=== PATIENT | female | born 1965 | race Caucasian/White ===

== ENCOUNTER → 2017-04-13 | Outpatient (CLI) | payer BC ==
[2017-04-13 13:15] LABS: BASO % 0.6 %; BASO ABS # 0.03 K/uL (0-0.2); EOS % 1.4 %; HEMATOCRIT 34.3 % (37-47); IG% 0.2 %; LYMPH % 33.5 %; LYMPH ABS # 1.68 K/uL (1.2-3.4); MEAN CELL VOLUME 66.2 fL (80-100); MEAN CORPUSCULAR HEMOGLOBIN 20.5 pg (25-34); MEAN CORPUSCULAR HGB CONC 30.9 g/dl (32-36); NEUT % 58.3 %; PLATELET COUNT 211 K/uL (130-400); RED BLOOD COUNT 5.18 M/uL (4.2-5.4); WHITE BLOOD COUNT 5.02 K/uL (4.8-10.8)
[2017-04-13 13:53] LABS: COMPLETE YES; MICROCYTOSIS PRESENT; POLYCHROMASIA 1+
[2017-04-13 14:09] LABS: ALT/SGPT 31 U/L (12-78); AST/SGOT 21 U/L (15-37); BLOOD UREA NITROGEN 13 mg/dl (7-18); BUN/CREATININE RATIO 21.2 (10-20); CALCIUM 9.1 mg/dl (8.5-10.1); CARBON DIOXIDE 28 mmol/L (21-32); CHLORIDE 109 mmol/L (98-107); CHOLESTEROL 146 mg/dl (0-200); GLUCOSE 81 mg/dl (70-99); POTASSIUM 3.8 mmol/L (3.5-5.1); SODIUM 144 mmol/L (136-145); TRIGLYCERIDES 98 mg/dl (0-150); VERY LOW DENSITY LIPOPROT CALC 20 mg/dl
[2017-04-13 14:18] LABS: ALKALINE PHOSPHATASE 218 U/L (45-117); CHOLESTEROL/HDL RATIO 2.8; FERRITIN 253.2 ng/ml (8.0-388.0); HDL CHOLESTEROL 53 mg/dl; LDL CHOLESTEROL CALCULATED 73 mg/dl; TOTAL IRON BINDING CAPACITY 271 mcg/dl (250-450)
== END | disposition home or self-care (01) ==
LOC: C.LABMFLN 08:36
PROVIDERS: ATTEND Family Medicine
DX: E78.5 Hyperlipidemia, unspecified (principal); E55.9 Vitamin D deficiency, unspecified; D56.3 Thalassemia minor; Z98.84 Bariatric surgery status; L65.9 Nonscarring hair loss, unspecified

== ENCOUNTER → 2017-07-27 | Outpatient (CLI) | payer BC ==
[2017-07-27 13:26] LABS: BASO % 0.6 %; BASO ABS # 0.03 K/uL (0-0.2); EOS % 1.7 %; HEMATOCRIT 34.7 % (37-47); IG% 0.2 %; LYMPH ABS # 1.85 K/uL (1.2-3.4); MEAN CELL VOLUME 66.2 fL (80-100); MEAN CORPUSCULAR HEMOGLOBIN 20.6 pg (25-34); MEAN CORPUSCULAR HGB CONC 31.1 g/dl (32-36); MONO % 5.1 %; NEUT % 58.4 %; PLATELET COUNT 210 K/uL (130-400); RED BLOOD COUNT 5.24 M/uL (4.2-5.4); WHITE BLOOD COUNT 5.44 K/uL (4.8-10.8)
[2017-07-27 14:07] LABS: COMPLETE YES; HYPOCHROMIA PRESENT; MICROCYTOSIS PRESENT; TARGET CELLS 1+
[2017-07-27 14:25] LABS: ALT/SGPT 34 U/L (12-78); AST/SGOT 17 U/L (15-37); BLOOD UREA NITROGEN 13 mg/dl (7-18); BUN/CREATININE RATIO 24.3 (10-20); CALCIUM 9.2 mg/dl (8.5-10.1); CARBON DIOXIDE 28 mmol/L (21-32); CHLORIDE 108 mmol/L (98-107); CREATININE 0.55 mg/dl (0.60-1.20); GLUCOSE 86 mg/dl (70-99); SODIUM 139 mmol/L (136-145)
[2017-07-27 14:37] LABS: ALKALINE PHOSPHATASE 201 U/L (45-117); TOTAL IRON BINDING CAPACITY 280 mcg/dl (250-450)
== END | disposition home or self-care (01) ==
LOC: C.LABMFLN 09:19
PROVIDERS: ATTEND Family Medicine
DX: E55.9 Vitamin D deficiency, unspecified (principal); D56.3 Thalassemia minor; Z98.84 Bariatric surgery status

== ENCOUNTER → 2018-01-19 | Outpatient (CLI) | payer BC ==
[2018-01-19 17:45] LABS: BASO % 0.5 %; BASO ABS # 0.03 K/uL (0-0.2); EOS % 1.9 %; EOS ABS # 0.11 K/uL (0-0.5); HEMATOCRIT 35.8 % (37-47); HEMOGLOBIN 11.2 g/dL (12.0-16.0); IG# 0.01 K/uL (0.00-0.02); LYMPH % 34.9 %; LYMPH ABS # 2.02 K/uL (1.2-3.4); MEAN CELL VOLUME 65.8 fL (80-100); MEAN CORPUSCULAR HEMOGLOBIN 20.6 pg (25-34); MEAN CORPUSCULAR HGB CONC 31.3 g/dl (32-36); MONO % 5.9 %; MONO ABS # 0.34 K/uL (0.11-0.59); NEUT % 56.6 %; NEUT ABS # 3.27 K/uL (1.4-6.5); PLATELET COUNT 295 K/uL (130-400); RED CELL DISTRIBUTION WIDTH CV 15.7 % (11.5-14.5); RED CELL DISTRIBUTION WIDTH SD 35.6 fL (36.4-46.3); WHITE BLOOD COUNT 5.78 K/uL (4.8-10.8)
[2018-01-19 17:57] LABS: ALBUMIN 3.6 gm/dl (3.4-5.0); ALT/SGPT 32 U/L (12-78); AST/SGOT 20 U/L (15-37); BLOOD UREA NITROGEN 10 mg/dl (7-18); CALCIUM 9.2 mg/dl (8.5-10.1); CARBON DIOXIDE 28 mmol/L (21-32); CHOLESTEROL 158 mg/dl (0-200); CREATININE 0.56 mg/dl (0.60-1.20); GLUCOSE 83 mg/dl (70-99); POTASSIUM 4.3 mmol/L (3.5-5.1); SODIUM 140 mmol/L (136-145)
[2018-01-19 18:03] LABS: ALKALINE PHOSPHATASE 157 U/L (45-117); LDL CHOLESTEROL CALCULATED 87 mg/dl; TOTAL PROTEIN 7.1 gm/dl (6.4-8.2); TRANSFERRIN 211 mg/dl (200-360)
== END | disposition home or self-care (01) ==
LOC: C.LABMFLN 11:15
PROVIDERS: ATTEND Family Medicine
DX: E53.8 Deficiency of other specified B group vitamins (principal); E78.5 Hyperlipidemia, unspecified; E55.9 Vitamin D deficiency, unspecified; D56.3 Thalassemia minor; Z98.84 Bariatric surgery status

== ENCOUNTER 2018-03-28 08:56 | Inpatient (IN) | payer BC ==
[2018-03-17 13:42] VITALS: BMI 42.0
--- NOTE | 2018-03-17 14:18 | PAT Medication Instructions ---
Service Date Mar 17, 2018. Current Home Medication List Acetaminophen (Tylenol), 1,000 MG PO Q8 PRN for Pain Calcium Carbonate-Cholecalcife (Caltrate 600+D), 1 TAB PO QAM Cholecalciferol (Vitamin D3), 1.5 TAB PO QAM Pediatric Multiple Vitamin W/ (Flintstones Chewable), 2 TAB PO QAM [vitamin b12 inj], 1 DOSE SQ MONTHLY Medication Instructions For Your Scheduled Surgery -Continue as directed: [vitamin b12 inj], 1 DOSE SQ MONTHLY - Hold the following medications the morning of surgery: Calcium Carbonate-Cholecalcife (Caltrate 600+D), 1 TAB PO QAM Cholecalciferol (Vitamin D3), 1.5 TAB PO QAM Pediatric Multiple Vitamin W/ (Flintstones Chewable), 2 TAB PO QAM - Take the following medications the morning of surgery with a sip of water: Acetaminophen (Tylenol), 1,000 MG PO Q8 PRN for Pain (if needed, can be taken up to four hours before surgery) - Take the following medications as scheduled the night before surgery: Acetaminophen (Tylenol), 1,000 MG PO Q8 PRN for Pain (if needed) If you have any questions please call us at [phone] or [phone] or [phone]
--- NOTE | 2018-03-17 15:03 | DIAGNOSTIC IMAGING REPORT ---
CHEST 2 VIEWS ROUTINE HISTORY: Preop. COMPARISON: None. FINDINGS: The lungs are clear. Cardiac silhouette is normal in size. No pleural effusions. No pneumothorax. IMPRESSION: No acute process. Electronically signed by: Lane Moraes M.D. 03/17/2018 3:01 PM Dictated Date/Time: 03/17/2018 2:58 PM
[2018-03-17 15:16] LABS: BASO % 0.4 %; BASO ABS # 0.02 K/uL (0-0.2); EOS % 1.8 %; HEMATOCRIT 33.3 % (37-47); HEMOGLOBIN 10.8 g/dL (12.0-16.0); IG# 0.01 K/uL (0.00-0.02); LYMPH % 35.3 %; LYMPH ABS # 1.96 K/uL (1.2-3.4); MEAN CELL VOLUME 64.3 fL (80-100); MEAN CORPUSCULAR HEMOGLOBIN 20.8 pg (25-34); MEAN CORPUSCULAR HGB CONC 32.4 g/dl (32-36); MONO % 5.2 %; MONO ABS # 0.29 K/uL (0.11-0.59); NEUT % 57.1 %; NEUT ABS # 3.18 K/uL (1.4-6.5); PLATELET COUNT 206 K/uL (130-400); RED CELL DISTRIBUTION WIDTH CV 16.1 % (11.5-14.5); RED CELL DISTRIBUTION WIDTH SD 36.6 fL (36.4-46.3); WHITE BLOOD COUNT 5.56 K/uL (4.8-10.8)
[2018-03-17 15:25] LABS: PTT PATIENT 25.9 SECONDS (21.0-31.0)
[2018-03-17 15:58] LABS: CALCIUM 9.2 mg/dl (8.5-10.1); CREATININE 0.53 mg/dl (0.60-1.20); POTASSIUM 3.8 mmol/L (3.5-5.1)
--- NOTE | 2018-03-24 17:05 | HISTORY & PHYSICAL EXAMINATION ---
DATE OF ADMISSION: 03/28/2018 CHIEF COMPLAINT: Bilateral knee pain and discomfort. HISTORY OF PRESENT ILLNESS: The patient is a 53-year-old female referred by my partner Dr. Hamilton for treatment of her knees. She has a long history of bilateral knee pain and discomfort, left side just a bit worse than the right. She has been through extensive conservative treatment over the years. The injections only helped her for about 2 weeks and that is about it. Pain has become more debilitating. She did have gastric bypass surgery with some weight loss but continues to be limited by her knee pain. She has pain with every step. She would like to proceed with left knee replacement. PAST MEDICAL HISTORY: Significant for 1. Obesity with BMI of 42, status post gastric reduction surgery in July 2017. 2. Thalassemia minor. 3. Back pain/sciatica. PAST SURGICAL HISTORY: Includes 1. Breast reduction. 2. Partial stomach reduction. 3. . ALLERGIES: None. CURRENT MEDICATIONS: 1. Tylenol. 2. Flintstones vitamins. 3. Calcium. 4. Vitamin D. SOCIAL HISTORY: A 53-year-old female. She is from [place]. She is single. Rare alcohol intake. She does not smoke. 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 FAMILY HISTORY: Significant for heart disease and diabetes. REVIEW OF SYSTEMS: Negative for diabetes, neurologic problem, vascular problem, bleeding disorders. No chest pain, no shortness of breath. No history of DVT or PE. She cannot take NSAIDs due to gastric bypass surgery. PHYSICAL EXAMINATION: GENERAL: Exam shows pleasant middle-aged female, looks to be in pretty good health. HEENT: Benign. NECK: Supple. No lymphadenopathy. LUNGS: Clear to auscultation. CARDIOVASCULAR: Heart has a regular rate and rhythm. GASTROINTESTINAL: Abdomen is soft, nontender, nondistended. EXTREMITIES: Grossly neurovascularly intact except as follows: Examination of both knees reveals the patient walks with a waddling gait. She has small knee effusions in both knees. She walks with a varus thrust bilaterally. She walks with a pretty stiff knee gait. Range of motion of both knees is pretty similar with about 15 degrees flexion contracture and about 90 degrees of flexion on both sides. Very stiff knees. IMAGING: X-rays of both knees reveal advanced bilateral knee DJD. She has complete loss of medial joint space and tibial femoral subluxation and cystic changes in both knees in all compartments. ASSESSMENT: A 53-year-old female with advanced bilateral knee pain and degenerative joint disease unresponsive to conservative treatment. She would like to proceed with left knee replacement. PLAN: We are going to proceed with left knee replacement. The risks and benefits of this procedure were explained to the patient and include but are not limited to DVT, PE, , infection, neurological injury, vascular injury, bleeding problem, pain, limited range of motion, stiffness, failure to relieve symptoms, incomplete relief of symptoms, need for further surgery in the future, fracture, leg length inequality, nerve palsy, and need for revision surgery. She is aware at her young age she may need this revised in the future. Due to her gastric bypass surgery, we cannot use aspirin. We will use Xarelto for DVT prophylaxis postoperatively. She should be able to be discharged home using [facility].
[2018-03-28] VITALS (8 sets, daily range): BP systolic 104–135; BP diastolic 68–81; PULSE 39–60; TEMP 36.4–36.8; O2SAT 95–100; Ht 152.4 cm; Wt 97.6 kg
[~2018-03-28] VITALS: Ht 152.4 cm; Wt 97.6 kg
[~2018-03-28 08:56] MED LIST: ACET-1256 PO; ACETAMINOPHEN 500 MG TAB PO SCH; BUPIVACAINE 0.5 % 5 MG/1 ML PF 10ML VIAL ONE; BUPIVACAINE LIPOSOME 266 MG, BUPIVACAINE/EPINEPHRINE INJ 50 ML, SODIUM CHLORIDE 0.9% PF... INFIL SCH; CALC-354 PO; CEFAZOLIN 2000MG IV PUSH 15 ML IV SCH; CHOL20007 PO; DEXAMETHASONE SOD INJ 4 MG/ML VIAL ONE; EpINEphrine INJ 1MG/ML AMP 1 MG/ML AMP ONE; FAMOTIDINE 20 MG TAB PO SCH; GABAPENTIN 900 MG PO SCH; LACTATED RINGER'S 1000ML IV SCH; METOCLOPRAMIDE HCL 10 MG TAB PO SCH; PEDICHW50 PO; SCOPOLAMINE 1.5 MG TDSY TD SCH; SODIUM CHLORIDE 0.9% INJ 10 ML VIAL ONE; TRANEXAMIC ACID INJ 1,000 MG x 1 Bag Intra-Op IV SCH; vitamin b12 inj SQ
[2018-03-28] MEDS ORDERED: FENTANYL CITRATE INJ 50 MCG/1 ML 2 ML VIAL ONE (09:23)
[2018-03-28] MEDS ORDERED: MIDAZOLAM HCL 1 MG/ML 2ML VIAL ONE ×2 (09:23→10:44)
--- NOTE | 2018-03-28 10:14 | History & Physical Bridge Note ---
H&P Re-Evaluation Bridge Note: I have examined the patient, reviewed the History & Physical and in the interval since the performance of the History & Physical I have noted the following changes of clinical significance: No changes noted
[2018-03-28] MEDS ORDERED: BACITRACIN 50000 UNIT VIAL ONE (10:23)
[2018-03-28] MEDS ORDERED: BUPIVACAINE LIPOSOME 1/3% 266 MG/20 ML VIAL ONE (10:23)
[2018-03-28] MEDS ORDERED: BUPIVACAINE 0.25% 30 ML VIAL ONE (10:23)
[2018-03-28] MEDS ORDERED: SODIUM CHLORIDE 0.9% PF 50 ML VIAL ONE (10:23)
[2018-03-28] MEDS ORDERED: PROPOFOL IV EMULSION 10 MG/ML 20 ML VIAL ONE ×2 (10:44→11:47)
[2018-03-28] MEDS ORDERED: ONDANSETRON INJ 2 MG/ML 2 ML VIAL IV PRN ×2 (10:45→12:30)
[2018-03-28] MEDS ORDERED: EpHEDrine SULFATE INJ 50 MG/ML AMP IV PRN (10:45)
[2018-03-28] MEDS ORDERED: FENTANYL CITRATE INJ 50 MCG/1 ML 2 ML VIAL IV PRN (10:45)
[2018-03-28] MEDS ORDERED: ATROPINE SULFATE 0.1 MG/ML 5ML SYR IV PRN (10:45)
--- NOTE | 2018-03-28 12:25 | [facility] Post Operative Brief Note ---
Immediate Operative Summary Operative Date March 28, 2018. Pre-Operative Diagnosis Left Knee Degenerative Joint Disease Post-Operative Diagnosis Left Knee Degenerative Joint Disease Procedure(s) Performed Left Total Knee Arthroplasty Surgeon Dr. Jasso Apparel Rental Clerk Surgeon(s) Isaac Corrales PA-C Estimated Blood Loss 50 ML Findings Consistent with Post-Op Diagnosis Fluids (cc crystalloids) 1300 cc Specimens A. Left Knee Bone and Tissue Drains None Anesthesia Type MAC Spinal Regional Complication(s) none Disposition Accompanied Pt To Recover: no Disposition: Recovery Room / PACU
[2018-03-28] MEDS ORDERED: MAGNESIUM HYDROXIDE SUSP 30 ML UDC PO PRN (12:30)
[2018-03-28] MEDS ORDERED: ZOLPIDEM TARTRATE 5 MG TAB PO PRN (12:30)
[2018-03-28] MEDS ORDERED: SILVER SULFADIAZINE 1% CR 50 GM JAR EXT PRN (12:30)
[2018-03-28] MEDS ORDERED: DiphenhydrAMINE HCL 50 MG/ML VIAL IV PRN (12:30)
[2018-03-28] MEDS ORDERED: MoRPHine SULFATE 2 MG/ML CARP IV PRN (12:30)
[2018-03-28] MEDS ORDERED: METOCLOPRAMIDE HCL INJ 5 MG/ML 2 ML VIAL IV PRN (12:30)
[2018-03-28] MEDS ORDERED: BISACODYL 10 MG SUPP PR PRN (12:30)
[2018-03-28] MEDS ORDERED: ALUMINUM/MAGNESIUM/SIMETH (MAALOX MAX) 30 ML UDC PO PRN (12:30)
--- NOTE | 2018-03-28 13:18 | DIAGNOSTIC IMAGING REPORT ---
L KNEE 1 OR 2 VIEWS ROUTINE CLINICAL HISTORY: AP/LATERAL IN PACU LEFT KNEE COMPARISON: None. DISCUSSION: Anatomic alignment posttotal left knee arthroplasty. Good contact between prosthetic and underlying bone. Expected soft tissue postoperative change. IMPRESSION: Anatomic alignment posttotal left knee arthroplasty. The above report was generated using voice recognition software. It may contain grammatical, syntax or spelling errors. Electronically signed by: Cordell Garzon M.D. 03/28/2018 1:17 PM Dictated Date/Time: 03/28/2018 1:13 PM
--- NOTE | 2018-03-28 13:37 | Anesthesiology Progress Note ---
Anesthesia Post Op Note Date & Time March 28, 2018 at 13:37 Vital Signs Pain Intensity: 0 Vital Signs Past 12 Hours Date Time Temp Pulse Resp B/P (MAP) Pulse Ox O2 Delivery O2 Flow Rate FiO2 03/28/18 13:12 54 18 03/28/18 13:12 54 18 100 03/28/18 13:11 106/63 03/28/18 13:07 48 15 03/28/18 13:07 49 15 95/73 100 03/28/18 13:06 36.6 100 Nasal Cannula 2 03/28/18 13:02 52 15 03/28/18 13:02 49 15 100 03/28/18 13:01 51 16 03/28/18 13:01 50 16 109/66 100 03/28/18 12:56 65 22 03/28/18 12:56 68 22 103/63 100 03/28/18 12:51 60 12 100 03/28/18 12:51 60 12 03/28/18 12:50 115/69 03/28/18 12:46 57 21 03/28/18 12:46 56 21 100 03/28/18 12:45 103/59 03/28/18 12:41 72 21 100 03/28/18 12:41 69 21 03/28/18 12:40 109/64 03/28/18 12:38 65 19 03/28/18 12:38 65 19 100 03/28/18 12:35 108/62 03/28/18 12:33 72 20 100 03/28/18 12:33 74 20 03/28/18 12:31 97/65 03/28/18 12:29 116/74 03/28/18 12:28 76 14 94 03/28/18 12:28 79 14 03/28/18 12:28 36.4 75 16 116/74 100 Nasal Cannula 2 03/28/18 09:30 36.6 56 18 135/81 96 Room Air Notes Mental Status: alert / awake / arousable, participated in evaluation Pt Amnestic to Procedure: Yes Nausea / Vomiting: adequately controlled Pain: adequately controlled Airway Patency, RR, SpO2: stable & adequate BP & HR: stable & adequate Hydration State: stable & adequate Neuraxial Anesthesia: was administered, sensory block is resolving Anesthetic Complications: no major complications apparent
--- NOTE | 2018-03-28 13:43 | OPERATIVE REPORT ---
DATE OF OPERATION: 03/28/2018 SURGEON: Jt Jasso MD AUTOMOTIVE PORTER: JOSHUA Ferraro PREOPERATIVE DIAGNOSIS: Left knee degenerative joint disease. POSTOPERATIVE DIAGNOSIS: Left knee degenerative joint disease. PROCEDURE PERFORMED: Left cemented posterior stabilized total knee arthroplasty. COMPLICATIONS: None. ESTIMATED BLOOD LOSS: 50 mL. FLUID REPLACEMENT: 1300 mL crystalloid fluid replacement. TOURNIQUET TIME: 57 minutes at 300 mmHg. ANESTHESIA: Spinal with adductor canal block. DRAINS: None. SPECIMENS: Left knee sent for pathology. OPERATIVE INDICATIONS: The patient is a 53-year-old female who has had a long history of bilateral knee pain and discomfort She has been through extensive conservative treatment. She became less successful over time. She has undergone a gastric bypass surgery and had a significant weight loss. Despite this, she continues to be limited by her knee pain. X-rays revealed advanced DJD. She elected to have left total knee arthroplasty. OPERATIVE FINDINGS: Operative findings revealed advanced left knee DJD with extensive grade 4 changes in the entire medial compartment and focal grade 4 changes in the lateral and patellofemoral compartments. She had a fixed varus deformity to her knee with a large knee joint effusion. Moderate to large soft tissue envelope. She had a very stiff knee with flexion contracture of 10 degrees and flexion to about 100 degrees. OPERATIVE IMPLANTS: Operative implants consisted of: 1. Biomet Vanguard size 60 left posterior stabilized femoral component. 2. A Biomet size 67 tibial tray. 3. A 12 mm posterior stabilized polyethylene insert. 4. A 28 x 8 all poly patella. OPERATIVE PROCEDURE: The patient was taken to the operating room, identified and placed on the operating table in supine position. All contact areas were appropriately padded. IV antibiotics were provided by anesthesia team. A spinal anesthetic and adductor canal block had been provided in the holding area. Zarco catheter was placed in sterile fashion. Left thigh tourniquet was then placed and left lower extremity was then prepped and draped in usual sterile fashion. Left leg was elevated and exsanguinated with use of an Esmarch and tourniquet placed at 300 mmHg. An anterior approach to the left knee was then performed through a longitudinal incision centered over the patella. Sharp dissection was carried through the subcutaneous tissue down to the level of the extensor mechanism. A medial parapatellar arthrotomy incision was made. Some subperiosteal dissection was carried out medially. The fat pad was resected from beneath the patellar tendon. Lateral patellofemoral ligament was released. Patella was everted and knee was flexed. The osteophytes were taken off the distal femur. The ACL and PCL were then released from the distal femur and the tibia was subluxated anteriorly. The external tibial alignment jig was then placed in the anterior face of the tibia and adjusted 16 mm medially. Proximal tibial cut was made to remove about a millimeter of bone at most from the most deficient aspect of the medial tibial plateau. Tibia was then sized to a size 67. The osteophytes were taken off posteromedially. Attention was then drawn to the femur. The distal femur was entered with a sharp drill. Intramedullary canal was suctioned. A left 5 degree valgus cutting guide was placed. Distal femoral cutting block was pinned in place. Distal femoral cut was made to take an additional 3 mm of bone off the distal femur. The femur was then sized to a size 60. We did downsize this slightly. The AP cutting block was pinned parallel to the epicondylar axis, which was 5 degrees of external rotation. The anterior cut, anterior chamfer, posterior cut, posterior chamfer cuts were made. Box cutting guide was placed. It was adjusted slightly laterally. The box cut was made. The osteophytes were taken off the posterior aspect of the femur. A trial femoral component was placed. Tibial tray was pinned in maximum external rotation and drill and stem punch were used to create defect in proximal tibia for the tibial tray. The knee was then trialed and the 12 mm insert fit most appropriately. Attention was then drawn to the patella. The patella was cleaned of all soft tissues. Patella thickness measured 20 mm in thickness and was cut down to 13. It was sized to a size 28 patella. Lug holes were drilled for a 28 patella. Lateral osteophyte was removed. Patella button was placed. Knee was taken through range of motion and the patella tracked nicely with no thumbs test. Attention was then drawn toward placement of permanent components. All trial components were removed. A bone plug was placed in the distal femur to limit blood loss. A double batch of Palacos G cement was mixed. A left size 60 posterior stabilized femoral component, size 67 tibial tray, 12 mm posterior stabilized polyethylene insert, and a 28 x 8 all poly patella then cemented in place. Knee was brought out into full extension until cement hardened. A final cement check was then performed. Pericapsular tissues were injected with a total of 100 mL of a combination of 20 mL of Exparel, 30 mL of normal saline, 50 mL of 0.25% Marcaine with epinephrine. The patient did receive 1 g of tranexamic acid. The tourniquet was then let down for a tourniquet time of 57 minutes. Hemostasis was assured with use of electrocautery. The extensor mechanism was then closed with a combination of #1 PDS suture and #1 Vicryl suture in [id number] fashion. Extensor mechanism was checked and found to be intact. The subcutaneous tissues were then closed with #2 Dexon suture in a buried interrupted fashion. Skin was closed with skin jey. Leg was then cleaned and dried and a sterile dressing of Xeroform, 4 x 4, sterile cast padding and Yann bandage were applied. The patient was then transferred to the recovery room in stable condition. The patient tolerated the procedure well with no complication. All needle and sponge counts were correct at the end of the operation. I attest to the content of the Intraoperative Record and any orders documented therein. Any exception s are noted below.
[2018-03-28] MEDS: ACETAMINOPHEN 500 MG TAB PO SCH ×2 (14:25→20:58)
[2018-03-28] MEDS: D5W AND 1/2NSS + 20MEQ KCL 1,000 ML IV SCH ×2 (14:25→22:50)
[2018-03-28] MEDS: KETOROLAC TROMETHAMINE 30 MG/ML VIAL IV. SCH ×2 (14:25→20:57)
[2018-03-28] MEDS: CHECK SCOPOLAMINE PATCH PLACEMENT SCH ×2 (15:30→23:31)
--- NOTE | 2018-03-28 16:38 | PROGRESS NOTE ---
DATE: 03/28/2018 SUBJECTIVE: This is a 53-year-old female, postop from a left knee replacement. She is doing well. Still cannot quite feel her legs. No chest pain or shortness of breath. Not feeling dizzy or lightheaded. OBJECTIVE: VITAL SIGNS: Temperature is 36.5. Vital signs stable. A little bit bradycardic. Pulse of 50. PHYSICAL EXAMINATION: Physical exam shows a pleasant, middle-aged female. She is sitting up in bed and eating her lunch. She looks pretty comfortable. She is talking to family. LUNGS: Clear to auscultation. HEART: Regular rate and rhythm. ABDOMEN: Soft, nontender, nondistended. EXTREMITY EXAMINATION: Grossly neurovascularly intact except as follows: Examination of the left lower extremity reveals the leg to be well-aligned. Dressing is clean, dry, and intact. She just starting to be able to flex her toes. She has brisk refill. No significant sensory function yet. X-RAYS: X-rays of the left knee from recovery room were reviewed. Shows left cemented posterior stabilized total knee arthroplasty. Components looked to be in good position. No signs of problems. ASSESSMENT: This is a 53-year-old female, postop from a left knee replacement, doing well. Pain is controlled. Spinal still in effect, but wearing off. PLAN: 1. DVT prophylaxis including thigh-high TEDs, SCDs, and we will put her on Xarelto due to her inability to take aspirin. 2. PT/OT. Weightbear as tolerated. Left total knee protocol. 3. Pain control, doing pretty well with current pain regimen. We will have to obviously increase her meds as spinal wears off. 4. IV antibiotics x24 hours. 5. Disposition: Plan to discharge to home with some home health likely once adequately recovered.
[2018-03-28] MEDS: FERROUS GLUCONATE 324 MG TAB PO SCH (18:07)
[2018-03-28] MEDS: CEFAZOLIN IV 2,000 MG in SYRINGE 0 ML IV SCH (18:08)
[2018-03-28] MEDS ORDERED: TRANEXAMIC ACID INJ 1,000 MG in SODIUM CHLORIDE 0.9% 100ML 100 ML IV SCH (18:30)
[2018-03-28] MEDS: TAPENTADOL ER 50 MG TABCR PO SCH (20:56)
[2018-03-28] MEDS: SENNA 8.6 MG TAB PO SCH (20:56)
[2018-03-28] MEDS: DOCUSATE SODIUM 100 MG CAP PO SCH (20:56)
[2018-03-29] VITALS: PULSE 45
[2018-03-29] MEDS: CEFAZOLIN IV 2,000 MG in SYRINGE 0 ML IV SCH (01:40)
[2018-03-29] MEDS: KETOROLAC TROMETHAMINE 30 MG/ML VIAL IV. SCH ×2 (01:41→08:32)
[2018-03-29 03:16] VITALS: BP 122/77; PULSE 45; TEMP 36.5; O2SAT 98
[2018-03-29] MEDS: D5W AND 1/2NSS + 20MEQ KCL 1,000 ML IV SCH (05:46)
[2018-03-29] MEDS: ACETAMINOPHEN 500 MG TAB PO SCH ×3 (05:47→22:15)
[2018-03-29] MEDS ORDERED: FRRG PO (06:55)
[2018-03-29] MEDS ORDERED: RXC5 PO (06:55)
[2018-03-29] MEDS ORDERED: ACET-24 PO (06:55)
[2018-03-29] MEDS ORDERED: XRL10 PO (06:55)
--- NOTE | 2018-03-29 06:57 | Discharge Instructions ---
Discharge Instructions Date of Service March 29, 2018. Admission Reason for Admission: Left Knee Degenerative Joint Disease, Knee Pain Discharge Discharge Diagnosis / Problem: Left Knee Replacement Discharge Goals Goal(s): Decrease discomfort, Improve function, Increase independence, Improve disease control, Therapeutic intervention Activity Recommendations Activity Limitations: per Instructions/Follow-up section Weightbearing Status: Left weightbearing . Instructions / Follow-Up Instructions / Follow-Up ACTIVITY RECOMMENDATIONS: Physical Therapy: * You will go to physical therapy three times each week for four to six weeks after your surgery in order to regain your knee range of motion and to retrain your knee to work properly. * It is just as important to make sure you are getting your knee perfectly straight as it is to regain your knee bend. * Taking a pain pill an hour before therapy can help you have a more productive and comfortable therapy session. Home Exercise: * You were shown a series of exercises (heel props, heel slides, etc.) in the hospital. Do these exercises three to four times each day including the exercises you were shown in physical therapy. Walking: * Get up and walk several times each day. For the first four weeks, try not to stand or walk for more than one hour at a time. If you do stand or walk for more than one hour, you will not hurt anything, but your knee and leg will likely swell. * As you feel comfortable, you may change from the walker or crutches to a cane and then to independent walking. MEDICATIONS: New Medicine: * You will likely be taking one or more of these medications: 1. Oxycodone - A quick and shorter-acting pain medication. Take one to two tablets every four to six hours to lessen your pain. 2. Iron Sulfate - Take two times each day for the month after surgery to help you replace the blood lost during surgery. 3. Aspirin - Thins your blood to lessen the chance of forming a blood clot. * The most common side effects of pain medicine and iron are nausea and constipation. If nausea or constipation is too much of a problem or if you have any questions about your new medicines or doses, call [facility] at . We will try to help you manage these issues. VERY IMPORTANT TO READ AND REVIEW" Pain: * The immediate post-operative period after knee replacement surgery is often quite painful. * You are given a prescription for pain medicine. You should take it, as directed, when you need it, especially before physical therapy and before going to bed. Pain that interferes with sleep is very common and can last several months. * You will likely need pain medicine for the first four to six weeks. It will not stop all of the pain. The pain will lessen and as you feel better, you may change to milder pain medicine such as Tylenol. * The most common side effects of pain medicine are nausea and constipation, so don't take more than you need. SPECIAL CARE INSTRUCTIONS: TEDs/Elastic Stockings: * The white elastic stockings help limit swelling and prevent blood clots from forming in your legs. The more you wear them, the more they work. * Wear them for six weeks after knee replacement surgery and four weeks after partial knee replacement. Prevention of Infection: * Take antibiotics one hour before any dental cleaning, dental work, urological procedure, gastrointestinal procedure or any invasive surgery in order to prevent your new joint from getting infected. * You may get the antibiotics from the doctor performing the procedure or you may call our office at before and we will call in a prescription to the pharmacy of your choice. Things to Watch For: * Drainage from the incision site that occurs more than one week after your surgery. * Severely increased knee/leg pain or swelling. * Increased redness at the incision site. * Fever above 102 degrees Fahrenheit. * Unusual chest pain or shortness of breath. * Unusual pain or burning with urination. Call [facility] at with any of the above problems or if you have any questions about your medicines or recovery. FOLLOW UP VISIT: Make an appointment to see your doctor for approximately two weeks after surgery for a progress check and staple removal by calling the office at . Current Hospital Diet Patient's current hospital diet: Regular Diet Discharge Diet Recommended Diet: Regular Diet Procedures Procedures Performed: Left Total Knee Arthroplasty Pending Studies Studies pending at discharge: no Laboratory Results Lipid Panel Test 01/19/18 11:17 Range/Units Triglycerides Level 124 0-150 mg/dl Cholesterol Level 158 0-200 mg/dl HDL Cholesterol 46 mg/dl Cholesterol/HDL Ratio 3.4 LDL Cholesterol, Calculated 87 mg/dl Medical Emergencies . Who to Call and When: Medical Emergencies: If at any time you feel your situation is an emergency, please call 911 immediately. . Non-Emergent Contact Non-Emergency issues call your: Surgeon . "Provider Documentation" section prepared by Jt Jasso. .
[2018-03-29 07:05] LABS: HEMOGLOBIN 8.6 g/dL (12.0-16.0); MEAN CELL VOLUME 65.2 fL (80-100); MEAN CORPUSCULAR HEMOGLOBIN 20.8 pg (25-34); MEAN CORPUSCULAR HGB CONC 31.9 g/dl (32-36); PLATELET COUNT 163 K/uL (130-400); RED CELL DISTRIBUTION WIDTH CV 16.1 % (11.5-14.5); RED CELL DISTRIBUTION WIDTH SD 37.8 fL (36.4-46.3); WHITE BLOOD COUNT 9.96 K/uL (4.8-10.8)
[2018-03-29 07:35] VITALS: BP 101/68; PULSE 54; TEMP 36.5; O2SAT 100
[2018-03-29 07:35] LABS: CALCIUM 8.4 mg/dl (8.5-10.1); CREATININE 0.59 mg/dl (0.60-1.20)
[2018-03-29] MEDS: CHECK SCOPOLAMINE PATCH PLACEMENT SCH ×3 (07:53→23:59)
[2018-03-29] MEDS: FERROUS GLUCONATE 324 MG TAB PO SCH ×3 (08:32→17:52)
[2018-03-29] MEDS: PANTOprazole SOD 40 MG TAB PO SCH (08:32)
[2018-03-29] MEDS: DOCUSATE SODIUM 100 MG CAP PO SCH ×2 (08:32→22:14)
[2018-03-29] MEDS: FLINTSTONES COMPLETE CHEWABLE TAB PO SCH (08:32)
[2018-03-29] MEDS: CALCIUM 600MG + VIT D 400 IU TAB PO SCH (08:32)
[2018-03-29] MEDS: CHOLECALCIFEROL 1000 INTER.UNIT TAB PO SCH (08:32)
[2018-03-29] MEDS: OXYCODONE HCL IR 5 MG TAB (IMMEDIATE RELEASE) PO PRN ×3 (08:35→17:55)
[2018-03-29] MEDS: TAPENTADOL ER 50 MG TABCR PO SCH ×2 (08:35→22:18)
[2018-03-29] MEDS ORDERED: MULTIVITAMIN TAB PO SCH (09:00)
--- NOTE | 2018-03-29 10:16 | PROGRESS NOTE ---
DATE: 03/29/2018 SUBJECTIVE: This is a 53-year-old female, postoperative day 1 from a left knee replacement. She is doing pretty well. Pain is well-controlled. No chest pain or shortness of breath. Not feeling dizzy or lightheaded. OBJECTIVE: VITAL SIGNS: Temperature 36.5. Vital signs stable. Still mildly bradycardic, but stable. PHYSICAL EXAMINATION: GENERAL: Physical examination shows a pleasant, middle-aged female. She is sitting up in bed, looks completely comfortable. EXTREMITIES: Examination of the left leg reveals the dressing to be in place. The leg is straight and well-aligned. She can dorsiflex and plantarflex her foot appropriately. She is neurologically intact. LABORATORIES: Hemoglobin is 8.6. Hematocrit 27.0. Electrolytes are stable. ASSESSMENT: This is a 53-year-old female, postop day 1 from a left knee replacement, doing pretty well. History of gastric bypass surgery in the past, so she cannot take NSAIDs for any long period of time or aspirin. Pain is reasonably well-controlled. She is neurologically intact. PLAN: 1. DVT prophylaxis including thigh-high TEDs, SCDs, and Xarelto due to her inability to take aspirin. 2. PT and OT. Weightbear as tolerated. Left total knee protocol. 3. Pain control. Doing reasonably well with the current pain regimen. 4. Disposition: Plan to discharge to home with some home health once adequately recovered.
[2018-03-29 11:15] VITALS: BP 107/70; PULSE 67; TEMP 36.4; O2SAT 94
[2018-03-29] MEDS: RIVAROXABAN 10 MG TAB PO SCH (12:32)
[2018-03-29 15:12] VITALS: BP 121/68; PULSE 58; TEMP 36.6; O2SAT 99
[2018-03-29] MEDS: SENNA 8.6 MG TAB PO SCH (22:14)
[2018-03-29 23:45] VITALS: BP 117/74; PULSE 83; TEMP 36.9; O2SAT 96
[2018-03-30] MEDS: OXYCODONE HCL IR 5 MG TAB (IMMEDIATE RELEASE) PO PRN ×3 (00:25→12:38)
[2018-03-30] MEDS: ACETAMINOPHEN 500 MG TAB PO SCH (05:01)
[2018-03-30 07:21] VITALS: BP 136/84; PULSE 82; TEMP 36.8; O2SAT 95
[2018-03-30] MEDS: CHECK SCOPOLAMINE PATCH PLACEMENT SCH (07:34)
--- NOTE | 2018-03-30 08:07 | PROGRESS NOTE ---
DATE: 03/30/2018 SUBJECTIVE: A 53-year-old white female postoperative day 2 from a left knee replacement. She is doing pretty well. Pretty sore this morning after therapy yesterday. No chest pain, no shortness of breath. Not feeling dizzy or lightheaded. OBJECTIVE: VITAL SIGNS: Temperature 36.9. Stable. GENERAL: A healthy, pleasant, middle aged female. She is sitting up in bed and looks comfortable. EXTREMITIES: Examination of the left leg reveals leg to be well aligned. Incision is clean, dry, and intact. Calf is soft and supple. She is neurologically intact. ASSESSMENT: A 53-year-old female postop day 2 from the left knee replacement, doing pretty well. Pain is reasonably well controlled. PLAN: 1. DVT prophylaxis including thigh-high TEDs, SCDs, and Xarelto for 1 month. 2. PT/OT. Weight bear as tolerated. Left total knee protocol. 3. Pain control, doing pretty well with current pain regimen. 4. Disposition: Plan to discharge to home with home health later today after therapy.
[2018-03-30] MEDS: FERROUS GLUCONATE 324 MG TAB PO SCH ×2 (08:46→12:22)
[2018-03-30] MEDS: FLINTSTONES COMPLETE CHEWABLE TAB PO SCH (08:46)
[2018-03-30] MEDS: PANTOprazole SOD 40 MG TAB PO SCH (08:46)
[2018-03-30] MEDS: DOCUSATE SODIUM 100 MG CAP PO SCH (08:46)
[2018-03-30] MEDS: CHOLECALCIFEROL 1000 INTER.UNIT TAB PO SCH (08:46)
[2018-03-30] MEDS: CALCIUM 600MG + VIT D 400 IU TAB PO SCH (08:46)
[2018-03-30] MEDS: TAPENTADOL ER 50 MG TABCR PO SCH (08:48)
[2018-03-30 11:03] VITALS: BP 136/84; PULSE 82; TEMP 36.8; O2SAT 95
[2018-03-30] MEDS: RIVAROXABAN 10 MG TAB PO SCH (12:38)
== END 2018-03-30 13:45 | disposition home health service (06) | DRG 470 ==
LOC: C.ACU 08:56 → C.3E 10:00 → ENRESERV 12:55
PROVIDERS: ADMIT Orthopaedic Surgery Sports Medicine; ATTEND Orthopaedic Surgery Sports Medicine
PROC: 0SRD0J9 Replacement of Left Knee Joint with Synthetic Substitute, Cemented, Open Approach (ICD-10-PCS; principal; 2018-03-28 11:00)
DX: M17.0 Bilateral primary osteoarthritis of knee (principal); Z68.41 Body mass index [BMI] 40.0-44.9, adult; E66.9 Obesity, unspecified; Z51.81 Encounter for therapeutic drug level monitoring; Z79.899 Other long term (current) drug therapy; Z98.84 Bariatric surgery status; Z83.3 Family history of diabetes mellitus